=== PATIENT | male | born 1965 | race Caucasian/White ===

== ENCOUNTER 2016-04-23 20:11 | Emergency (ER) | payer OTHER ==
[~2016-04-23] VITALS: Ht 162.6 cm; Wt 68.1 kg
[~2016-04-23 20:11] MED LIST: ACET-1256 PO; GABA-112 PO; PENI-82 PO
[2016-04-23 20:33] VITALS: TEMP 37; Ht 162.6 cm; Wt 68.1 kg
[2016-04-23] MEDS ORDERED: GABAPENTIN 600 MG TAB PO STA (21:23)
[2016-04-23] MEDS ORDERED: NRN/600 PO (21:31)
[2016-04-23 21:41] VITALS: BP 154/70; PULSE 78; O2SAT 94
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
[2016-05-26] MEDS ORDERED: LSN/2025 PO (14:47)
[2016-05-26] MEDS ORDERED: GABA600T PO ×2 (21:16→23:14)
== END 2016-04-23 21:42 | disposition home or self-care (01) ==
LOC: C.EDB 20:15 → C.EDD 21:42
DX: Z76.0 Encounter for issue of repeat prescription (principal); G89.29 Other chronic pain; I10 Essential (primary) hypertension; F17.200 Nicotine dependence, unspecified, uncomplicated

== ENCOUNTER 2016-05-26 22:18 | Emergency (ER) | payer OTHER ==
[~2016-05-26] VITALS: Ht 162.6 cm; Wt 71.3 kg
[~2016-05-26 22:18] MED LIST changes: -GABA-112 PO; +GABA600T PO; +LSN/2025 PO; -PENI-82 PO
[2016-05-26 22:21] VITALS: TEMP 36.7; Ht 162.6 cm; Wt 71.3 kg
[2016-05-26] MEDS ORDERED: GABA600T PO (23:14)
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
[2016-05-26 23:37] VITALS: BP 165/91; PULSE 65; O2SAT 95
== END 2016-05-26 23:38 | disposition home or self-care (01) ==
LOC: C.EDB 22:21 → C.EDD 23:38
DX: Z76.0 Encounter for issue of repeat prescription (principal); K21.9 Gastro-esophageal reflux disease without esophagitis; I10 Essential (primary) hypertension; K27.9 Peptic ulcer, site unspecified, unspecified as acute or chronic, without hemorrhage or perforation; F17.210 Nicotine dependence, cigarettes, uncomplicated

== ENCOUNTER 2016-06-13 12:58 | Emergency (ER) | payer OTHER ==
[~2016-06-13] VITALS: Ht 162.6 cm; Wt 68.1 kg
[2016-06-13 13:11] VITALS: BP 128/79; PULSE 87; TEMP 36.6; O2SAT 94; Ht 162.6 cm; Wt 68.1 kg
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
== END 2016-06-13 13:47 | disposition home or self-care (01) ==
LOC: C.EDB 13:00 → C.EDD 13:47
DX: Z76.0 Encounter for issue of repeat prescription (principal); G89.21 Chronic pain due to trauma; K21.9 Gastro-esophageal reflux disease without esophagitis; I10 Essential (primary) hypertension; F17.210 Nicotine dependence, cigarettes, uncomplicated; Z79.899 Other long term (current) drug therapy

== ENCOUNTER 2016-06-23 08:04 | Emergency (ER) | payer OTHER ==
[~2016-06-23] VITALS: Ht 162.6 cm; Wt 71.8 kg
[2016-06-23 08:08] VITALS: BP 125/75; PULSE 87; TEMP 36.7; O2SAT 95; Ht 162.6 cm; Wt 71.8 kg
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
== END 2016-06-23 08:47 | disposition home or self-care (01) ==
LOC: C.EDB 08:06 → C.EDA 08:47
DX: Z76.0 Encounter for issue of repeat prescription (principal); M25.571 Pain in right ankle and joints of right foot; M54.5 Low back pain; G89.21 Chronic pain due to trauma; K21.9 Gastro-esophageal reflux disease without esophagitis; I10 Essential (primary) hypertension; F17.210 Nicotine dependence, cigarettes, uncomplicated; Z79.899 Other long term (current) drug therapy

== ENCOUNTER 2016-10-31 13:13 | Emergency (ER) | payer OTHER ==
[~2016-10-31] VITALS: Ht 162.6 cm; Wt 63.6 kg
[~2016-10-31 13:13] MED LIST changes: -GABA600T PO
[2016-10-31 13:15] VITALS: TEMP 36.5; Ht 162.6 cm; Wt 63.6 kg
[2016-10-31] MEDS ORDERED: SODIUM CHLORIDE 0.9% 1000ML 500 ML IV STA (13:31)
[2016-10-31] MEDS ORDERED: PROMETHAZINE HCL INJ 25 MG/ML 1 ML VIAL IV STA (13:31)
[2016-10-31] MEDS ORDERED: SODIUM CHLORIDE 0.9% 1000ML 1,000 ML IV STA (13:31)
--- NOTE | 2016-10-31 13:37 | EMERGENCY ROOM VISIT NOTE ---
History Report prepared by Ryan: Sussy Lewis Under the Supervision of: Dr. Cliff Weber M.D. First contact with patient: 13:26 Chief Complaint: ABDOMINAL PAIN Stated Complaint: ABD PAIN, NAUSEA Nursing Triage Summary: Pt presents from [facility], here with lower abdominal pain and nausea starting Friday. History of Present Illness The patient is a 51 year old male who presents to the Emergency Room with complaints of persistent upper abdominal pain that began five days ago. He currently rates his discomfort as a 10/10 in severity. The patient states that his pain is worsened with eating and drinking. He reports that he has been experiencing nausea and states that he has been vomiting his medication up every morning. The patient states that his pain radiates down to his one testicle. He reports back pain. The patient states that he had a subjective fever on Friday. He reports a history of an appendectomy but states that he still has his gallbladder. The patient reports that he had a stomach ulcer when he was younger. He states that he has not been making as much urine. The patient denies any history of pancreatitis or gallstones. 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 Source of History: patient Onset: five days ago Position: abdomen (upper) Symptom Intensity: 10/10 Timing: other (persistent) Modifying Factors (Worsening): eating, drinking Associated Symptoms: + fevers (subjective), + nausea, + vomiting, + back pain Note: Associated Symptoms: testicular pain Review of Systems See HPI for pertinent positives & negatives. A total of 10 systems reviewed and were otherwise negative. 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 (2) Chronic back pain (3) Degenerative disc disease (4) GERD (gastroesophageal reflux disease) (5) History of peptic ulcer (6) Hypertension (7) Hypertensive urgency (8) Tobacco abuse Family History No pertinent family history Social History Smoking Status: Current Every Day Smoker Alcohol Use: occasionally Marital Status: Occupation Status: employed Current/Historical Medications Scheduled Hydrochlorothiazide (Hydrochlorothiazide), 50 MG PO DAILY Lisinopril/Hctz (Zestoretic 20MG/25MG), 2 TABS PO DAILY Scheduled PRN Acetaminophen (Tylenol), 1,000 MG PO BID PRN for Pain Aluminum/Magnesium/Simeth (Maalox Max Susp), 30 ML PO BID PRN for PRN Allergies Coded Allergies: Morphine (Unverified Allergy, Mild, RASH, 06/23/16) Physical Exam Vital Signs Date Time Temp Pulse Resp B/P (MAP) Pulse Ox O2 Delivery O2 Flow Rate FiO2 10/31/16 14:07 88 10/31/16 13:50 86 13 136/86 97 Room Air 10/31/16 13:15 36.5 90 18 157/107 96 Room Air Physical Exam GENERAL: Patient is in no acute distress. Moaning. HEENT: No acute trauma, normocephalic atraumatic, mucous membranes moist, no nasal congestion, no scleral icterus. NECK: No stridor, no adenopathy, no meningismus, trachea is midline. LUNGS: Wheezing bilaterally, equal breath sounds, no rhonchi. HEART: Without murmurs gallops or rubs, regular rate and rhythm. ABDOMEN: Diffusely mildly tender, but primarily tender in the epigastrium. Soft , bowel sounds positive, no hernias, no peritonitis. EXTREMITIES: No cyanosis or edema, full range of motion of all the joints without pain or difficulty, no signs for acute trauma. NEUROLOGIC: Oriented x 3, no acute motor or sensory deficits, no focal weakness. SKIN: No rash, no jaundice, no diaphoresis. Medical Decision & Procedures ER Provider Diagnostic Interpretation: Radiology results as stated below per my review and radiologist interpretation: CHEST ONE VIEW PORTABLE CLINICAL HISTORY: Abdominal pain. Nausea. COMPARISON STUDY: No previous studies for comparison. FINDINGS: There is no pneumothorax or pleural effusion. Pulmonary vascularity is normal. No consolidation is identified. Cardiomediastinal silhouette is normal. IMPRESSION: No acute cardiopulmonary findings. Electronically signed by: Wilber Mallory M.D. 10/31/2016 2:23 PM Dictated Date/Time: 10/31/2016 2:22 PM Laboratory Results 10/31/16 13:44 Red Blood Count 5.20, Mean Corpuscular Volume 89.2, Mean Corpuscular Hemoglobin 32.5, Mean Corpuscular Hemoglobin Concent 36.4, Mean Platelet Volume 9.6, Neutrophils (%) (Auto) 75.5, Lymphocytes (%) (Auto) 16.3, Monocytes (%) (Auto) 7.4, Eosinophils (%) (Auto) 0.3, Basophils (%) (Auto) 0.3, Neutrophils # (Auto) 7.05, Lymphocytes # (Auto) 1.52, Monocytes # (Auto) 0.69, Eosinophils # (Auto) 0.03, Basophils # (Auto) 0.03 10/31/16 13:44 Test 10/31/16 13:44 White Blood Count 9.34 K/uL (4.8-10.8) Red Blood Count 5.20 M/uL (4.7-6.1) Hemoglobin 16.9 g/dL (14.0-18.0) Hematocrit 46.4 % (42-52) Mean Corpuscular Volume 89.2 fL (80-100) Mean Corpuscular Hemoglobin 32.5 pg (25-34) Mean Corpuscular Hemoglobin Concent 36.4 g/dl (32-36) Platelet Count 315 K/uL (130-400) Mean Platelet Volume 9.6 fL (7.4-10.4) Neutrophils (%) (Auto) 75.5 % Lymphocytes (%) (Auto) 16.3 % Monocytes (%) (Auto) 7.4 % Eosinophils (%) (Auto) 0.3 % Basophils (%) (Auto) 0.3 % Neutrophils # (Auto) 7.05 K/uL (1.4-6.5) Lymphocytes # (Auto) 1.52 K/uL (1.2-3.4) Monocytes # (Auto) 0.69 K/uL (0.11-0.59) Eosinophils # (Auto) 0.03 K/uL (0-0.5) Basophils # (Auto) 0.03 K/uL (0-0.2) RDW Standard Deviation 41.6 fL (36.4-46.3) RDW Coefficient of Variation 12.8 % (11.5-14.5) Immature Granulocyte % (Auto) 0.2 % Immature Granulocyte # (Auto) 0.02 K/uL (0.00-0.02) Prothrombin Time 10.3 SECONDS (9.0-12.0) Prothromb Time International Ratio 1.0 (0.9-1.1) Activated Partial Thromboplast Time 24.3 SECONDS (21.0-31.0) Partial Thromboplastin Ratio 0.9 Anion Gap 9.0 mmol/L (3-11) Est Creatinine Clear Calc Drug Dose 56.3 ml/min Estimated GFR () 73.2 Estimated GFR (Non- 63.2 BUN/Creatinine Ratio 27.5 (10-20) Calcium Level 10.2 mg/dl (8.5-10.1) Total Bilirubin 1.3 mg/dl (0.2-1) Aspartate Amino Transf (AST/SGOT) 17 U/L (15-37) Alanine Aminotransferase (ALT/SGPT) 25 U/L (12-78) Alkaline Phosphatase 69 U/L (45-117) Troponin I < 0.015 ng/ml (0-0.045) Total Protein 8.4 gm/dl (6.4-8.2) Albumin 4.6 gm/dl (3.4-5.0) Globulin 3.8 gm/dl (2.5-4.0) Albumin/Globulin Ratio 1.2 (0.9-2) Lipase 145 U/L (73-393) Laboratory results reviewed by me. Medications Administered Medications (Trade) Dose Ordered Sig/Abran Route Start Time Stop Time Status Last Admin Dose Admin Sodium Chloride 500 ml @ 999 mls/hr Q31M STAT IV 10/31/16 13:31 10/31/16 14:01 DC 10/31/16 13:52 999 MLS/HR Sodium Chloride 1,000 ml @ 200 mls/hr Q5H STAT IV 10/31/16 13:31 10/31/16 18:30 10/31/16 14:21 200 MLS/HR Hydromorphone HCl (Dilaudid Inj) 0.5 mg STK-MED ONCE .ROUTE 10/31/16 13:48 10/31/16 13:49 DC 10/31/16 13:52 0.5 MG Promethazine HCl 12.5 mg/Sodium Chloride 50.5 ml @ 202 mls/hr 1430 ONCE IV 10/31/16 14:30 10/31/16 14:44 DC 10/31/16 14:57 202 MLS/HR Hydromorphone HCl (Dilaudid Inj) 0.5 mg STK-MED ONCE .ROUTE 10/31/16 14:53 10/31/16 14:54 DC 10/31/16 14:57 0.5 MG ECG Indication: abdominal pain Rate (beats per minute): 78 Rhythm: normal sinus (with sinus arrhythmia) Findings: no acute ischemic change, no ectopy ED Course 1327: The patient was evaluated in room B2. A complete history and physical exam was performed. 1331: Ordered Sodium Chloride 1000 ml @ 200 mls/hr IV, Phenergan Inj 12.5 mg IV , Sodium Chloride 500 ml @ 999 mls/hr IV. 1345: Ordered Dilaudid Inj 0.5 mg IV. 1430: Ordered Promethazine HCl 12.5 mg/Sodium Chloride 50.5 ml @ 202 mls/hr IV. Medical Decision The patient is a 51 year old male who presents to the ED with complaints of abdominal pain. Differential diagnoses considered include Musculoskeletal pain , pancreatitis, biliary colic, acute cholecystis, gastritis, ulcer, diverticulitis, cardiac ischemia, [place], pneumonia. There is no leukocytosis or concerning anemia. No significant electrolyte abnormality, kidney failure or hepatitis. There is no pancreatitis. EKG shows a sinus rhythm, no acute ischemia. Cardiac enzyme testing times one is not consistent with acute cardiac injury. Chest x-ray does not show mediastinal widening, pneumonia or pneumothorax. Urinalysis result is pending. Gallbladder ultrasound and abdominal and pelvis CT are pending. The patient received IV saline, IV Phenergan and IV Dilaudid. He is more comfortable. At this point, the case is being assumed by Dr. Bean, she is the oncoming physician at the change of shift. The cause for the patient's pain is still unclear. Imaging is pending. Impression Primary Impression: Upper abdominal pain Scribe Attestation The scribe's documentation has been prepared under my direction and personally reviewed by me in its entirety. I confirm that the note above accurately reflects all work, treatment, procedures, and medical decision making performed by me. Departure Information Dispostion Still a Patient Referrals No Doctor, Assigned (PCP) Patient Instructions [facility]
[2016-10-31] MEDS ORDERED: ALUMSUS2 PO (13:45)
[2016-10-31] MEDS ORDERED: HYDR25TA5 PO (13:45)
[2016-10-31] MEDS ORDERED: ACET-1256 PO (13:45)
[2016-10-31] MEDS ORDERED: HYDROmorphone INJ 2 MG/ML SYR/VIAL IV PRN (13:45)
[2016-10-31] MEDS ORDERED: LISI-788 PO (13:45)
[2016-10-31] MEDS ORDERED: HYDROmorphone INJ 0.5 MG/0.5 ML SYR ONE ×5 (13:48→20:19)
[2016-10-31 13:58] LABS: BASO % 0.3 %; BASO ABS # 0.03 K/uL (0-0.2); COMPLETE YES; EOS % 0.3 %; HEMATOCRIT 46.4 % (42-52); IG% 0.2 %; LYMPH % 16.3 %; LYMPH ABS # 1.52 K/uL (1.2-3.4); MEAN CELL VOLUME 89.2 fL (80-100); MEAN CORPUSCULAR HEMOGLOBIN 32.5 pg (25-34); MEAN CORPUSCULAR HGB CONC 36.4 g/dl (32-36); MEAN PLATELET VOLUME 9.6 fL (7.4-10.4); MONO % 7.4 %; NEUT % 75.5 %; PLATELET COUNT 315 K/uL (130-400); WHITE BLOOD COUNT 9.34 K/uL (4.8-10.8)
[2016-10-31 14:09] LABS: PARTIAL THROMBOPLASTIN RATIO 0.9; PROTHROMBIN TIME (PATIENT) 10.3 SECONDS (9.0-12.0)
[2016-10-31 14:15] LABS: ALT/SGPT 25 U/L (12-78); BLOOD UREA NITROGEN 36 mg/dl (7-18); BUN/CREATININE RATIO 27.5 (10-20); CALCIUM 10.2 mg/dl (8.5-10.1); CARBON DIOXIDE 28 mmol/L (21-32); CHLORIDE 99 mmol/L (98-107); GLUCOSE 120 mg/dl (70-99); POTASSIUM 4.2 mmol/L (3.5-5.1); SODIUM 136 mmol/L (136-145)
[2016-10-31 14:20] LABS: ALB/GLOB RATIO 1.2 (0.9-2); ALKALINE PHOSPHATASE 69 U/L (45-117); AST/SGOT 17 U/L (15-37)
--- NOTE | 2016-10-31 14:24 | DIAGNOSTIC IMAGING REPORT ---
CHEST ONE VIEW PORTABLE CLINICAL HISTORY: Abdominal pain. Nausea. COMPARISON STUDY: No previous studies for comparison. FINDINGS: There is no pneumothorax or pleural effusion. Pulmonary vascularity is normal. No consolidation is identified. Cardiomediastinal silhouette is normal. IMPRESSION: No acute cardiopulmonary findings. Electronically signed by: Wilber Mallory M.D. 10/31/2016 2:23 PM Dictated Date/Time: 10/31/2016 2:22 PM
[2016-10-31] MEDS ORDERED: PROMETHAZINE HCL INJ 12.5 MG in SODIUM CHLORIDE 0.9% 50ML 50 ML IV ONE (14:30)
--- NOTE | 2016-10-31 15:14 | DIAGNOSTIC IMAGING REPORT ---
GALLBLADDER-ABD LIMITED HISTORY: 51 years-old Male ABDOMINAL PAIN/GI COMPARISON: CT abdomen and pelvis 10/04/2015 TECHNIQUE: Multiple real-time sonographic images of the abdominal right upper quadrant were obtained assessing grayscale appearance and color flow. FINDINGS: The imaged portions of the pancreas are unremarkable with the distal body and tail obscured by bowel gas. The proximal pancreatic duct appears mildly dilated, 0.5 cm without obstructing stone or mass identified. The hepatic parenchyma is within normal limits without focal mass. Gallbladder is within normal limits without shadowing cholelithiasis, color wall thickening or pericholecystic fluid. A positive sonographic Thomas's sign was not reported. Common bile duct measures in the upper limits of normal, 0.6 cm. The imaged portions of the right kidney are unremarkable without hydronephrosis. IMPRESSION: 1. Mild dilation of the proximal pancreatic duct, 0.5 cm without obstructing stone or mass identified is nonspecific. Correlate with CT abdomen and pelvis scheduled for same day. 2. No cholelithiasis or sonographic evidence of acute cholecystitis. 3. No biliary ductal dilation. The above report was generated using voice recognition software. It may contain grammatical, syntax or spelling errors. Electronically signed by: Haris Ballard M.D. 10/31/2016 3:13 PM Dictated Date/Time: 10/31/2016 3:01 PM
[2016-10-31] MEDS ORDERED: OPTIRAY 320 IV PRN (15:45)
--- NOTE | 2016-10-31 17:57 | DIAGNOSTIC IMAGING REPORT ---
ABD/PELVIS IV AND ORAL CONT CLINICAL HISTORY: 51 years-old Male presenting with ABDOMINAL PAIN/GI--?DIVERTICULITIS--GIVE PO AND IV CONTRAST. TECHNIQUE: Multidetector CT of the abdomen and pelvis was performed after the administration of oral and intravenous contrast. IV contrast: 93 mL of Optiray 320. A dose lowering technique was used consistent with the principles of ALARA (as low as reasonably achievable). COMPARISON: 10/04/2015. CT DOSE (mGy.cm): The estimated cumulative dose is 256.65 mGy.cm. 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 Lung bases: Minimal dependent opacities likely atelectasis. Normal heart size. No pericardial or pleural effusion. Liver: Normal morphology. No liver lesion. Patent hepatic vasculature. Biliary: No intrahepatic or extrahepatic biliary ductal dilatation. Normal gallbladder. Pancreas: Prominence of the pancreatic duct in the pancreatic head and neck. No gross evidence of an obstructing mass or calculus. Spleen: Normal. Adrenal glands: Normal. Kidneys and ureters: Subcentimeter hypodensities, too small to characterize but likely cysts. No nephrolithiasis. No hydronephrosis. Bladder: Normal. Pelvic organs: Prostate enlargement likely secondary to benign prostatic hyperplasia. Bowel: Small hiatal hernia. Suggestion of distal esophageal wall thickening. No infiltration of the paraesophageal fat. Subcentimeter lymph node noted along the left aspect of the esophagus in the posterior mediastinum (series 3 image 21). Bowel otherwise normal. No bowel obstruction. Peritoneal cavity: No free fluid or intraperitoneal gas. Vasculature: Atherosclerosis of the normal caliber abdominal aorta. IVC patent. Lymph nodes: Prominent paraesophageal lymph node. Otherwise no evidence of enlarged lymph nodes in abdomen or pelvis. Abdominal wall: Normal. Musculoskeletal: Intramedullary nail through the proximal right femoral metadiaphysis. 3 lucent lesions noted, one of which demonstrates a sclerotic rim in the left ilium. Remaining to lesions do not have a sclerotic rim, one in the right ilium and the second in the L5 vertebral body. Additional degenerative changes of the lumbar spine noted. IMPRESSION: 1. Distal esophageal wall thickening with a small hiatal hernia. This could represent esophagitis secondary to reflux. However, the presence of a prominent paraesophageal lymph node could raise suspicion for neoplastic changes of the esophagus. Consideration for upper endoscopy. 2. Indeterminate lucent lesions pelvic bones and L5 vertebral body. Electronically signed by: Roel Husain M.D. 10/31/2016 5:56 PM Dictated Date/Time: 10/31/2016 5:44 PM
[2016-10-31 18:15] LABS: URINE APPEARANCE CLEAR (CLEAR); URINE BILIRUBIN NEG (NEG); URINE COLOR YELLOW; URINE NITRITE NEG (NEG); URINE PH 7.5 (4.5-7.5); URINE SPECIFIC GRAVITY 1.025 (1.000-1.030); UROBILINOGEN NEG (NEG); ZZUR CULT IF INDIC CLEAN CATCH NO
[2016-10-31 18:18] LABS: MANUAL MICROSCOPIC REQUIRED? NO; REVIEW REQ? NO
[2016-10-31] MEDS ORDERED: GI COCKTAIL PO STA (18:22)
[2016-10-31] MEDS ORDERED: PANTOprazole INJ 40 MG in SYRINGE 0 ML IV ONE (18:30)
[2016-10-31] MEDS ORDERED: LIDOCAINE HCL 2% VISC SOLN 20 ML UDC ONE (18:53)
[2016-10-31] MEDS ORDERED: ALUMINUM/MAGNESIUM SUSP 30 ML UDC ONE (18:53)
--- NOTE | 2016-10-31 18:56 | EMERGENCY ROOM VISIT NOTE ---
ED Visit Note First contact with patient: 15:49 I received this patient in sign out from Dr. Weber. I updated the pt at bedside regarding his labs, US and CT results. Pt states has been having epigastric pain with eating over the course of the last week. Denies hx of GERD /PUD. Patient in no recurrent vomiting while here, no episodes of diarrhea. Vital signs stable and patient afebrile. Patient tolerated by mouth challenge, given dose of IV Protonix and GI cocktail. Discussed with patient need for additional GI evaluation and likely EGD. Patient aware of abnormalities found on CT. Advised initiation of acid reducing medication on a daily basis, avoidance of acidic foods in his diet. Discussed symptoms to watch and return for, he verbalized understanding was agreeable with plan. Copies of all results given to guards prior to transfer back to correction.
[2016-10-31 19:55] VITALS: BP 102/72; PULSE 79; O2SAT 97
== END 2016-10-31 20:40 | disposition home or self-care (01) ==
LOC: C.EDB 13:14
DX: R10.10 Upper abdominal pain, unspecified (principal); N50.819 Testicular pain, unspecified; M54.9 Dorsalgia, unspecified; G89.29 Other chronic pain; K21.9 Gastro-esophageal reflux disease without esophagitis; I10 Essential (primary) hypertension; F17.210 Nicotine dependence, cigarettes, uncomplicated; Z79.899 Other long term (current) drug therapy

== ENCOUNTER 2016-12-13 14:08 | Emergency (ER) | payer OTHER ==
[~2016-12-13 14:08] MED LIST changes: +ALUMSUS2 PO; +HYDR25TA5 PO; +LISI-788 PO; -LSN/2025 PO
--- NOTE | 2016-12-13 14:23 | EMERGENCY ROOM VISIT NOTE ---
History Report prepared by Ryan: Anish Marie Under the Supervision of: Dr. Francesco Powers D.O. First contact with patient: 14:11 Stated Complaint: CARDIAC ARREST History of Present Illness The patient is a 51 year old male who presents to the Emergency Room for constant cardiac arrest. Per the EMS the patient was last seen an hour and a half before EMS arrival and he was nauseous and vomiting. Additionally, the patient has not been feeling well since yesterday. Per the EMS, the patient has a history of drug use, though unsure what kind of drugs. Additionally, they state that the [facility], and yesterday he refilled a prescription, though the family is unsure what kind. The patient was found unresponsive and laying in his own vomit. En route, the patient was given 6 rounds of epinephrine and intubated, and he still remained in asystole. It was 53 minutes from the time EMS was on scene and the patient arrived. History is limited secondary to cardiac arrest. Source of History: EMS History Limited By: cardiac arrest Onset: an hour and a half Position: other (global) Quality: other (cardiac arrest) Timing: constant Associated Symptoms: + vomiting Review of Systems See HPI for pertinent positives & negatives. A total of 10 systems reviewed and were otherwise negative. 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 (2) Chronic back pain (3) Degenerative disc disease (4) GERD (gastroesophageal reflux disease) (5) History of peptic ulcer (6) Hypertension (7) Hypertensive urgency (8) Tobacco abuse Family History No pertinent family history Social History Smoking Status: Current Every Day Smoker Alcohol Use: occasionally Marital Status: Occupation Status: employed Current/Historical Medications Scheduled Hydrochlorothiazide (Hydrochlorothiazide), 50 MG PO DAILY Lisinopril/Hctz (Zestoretic 20MG/25MG), 2 TABS PO DAILY Scheduled PRN Acetaminophen (Tylenol), 1,000 MG PO BID PRN for Pain Aluminum/Magnesium/Simeth (Maalox Max Susp), 30 ML PO BID PRN for PRN Allergies Coded Allergies: Morphine (Unverified Allergy, Mild, RASH, 06/23/16) Physical Exam Physical Exam CONSTITUTIONAL/VITAL SIGNS: Reviewed / noted above. GENERAL: No signs of life. INTEGUMENTARY: Pale HEAD: Normocephalic. EYES: fixed and dilated ENT/OROPHARYNX: ETT in place RESPIRATORY: Lungs clear and equal. CARDIOVASCULAR: No pulses EXTREMITIES: Cool NEUROLOGICAL: No response. MUSCULOSKELETAL: No obvious trauma. Medical Decision & Procedures ED Course 1411: Previous medical records were reviewed. The patient was evaluated in room B1. A complete history and physical examination was performed. Medical Decision Differential diagnosis: Etiologies such as cardiac ischemia, aortic dissection, pulmonary embolism, electrolyte abnormality, acidosis, tension pneumothorax, hypothermia, hypovolemia, intracranial event, as well as others were entertained. The patient is a 51-year-old male who arrives in cardiac arrest by EMS. The EMS report that the patient has been ill recently with some vomiting. He has been ill for a few days. The patient got a prescription filled yesterday. Today the patient was found by family unresponsive. He was last seen awake about 1-1/2 hours prior to this. EMS has been working the patient about 53 minutes prior to their arrival in the emergency department. They've administered 6 mg of epinephrine, endotracheal intubation and have been performing continuous CPR. The patient was found in asystole. He remains in asystole. He has had no rhythm throughout his resuscitation efforts. CPR was continued in the emergency department briefly. The patient's exam did not reveal any signs of life. EKG reveals asystole. The patient was pronounced . Impression Primary Impression: Cardiac arrest Scribe Attestation The scribe's documentation has been prepared under my direction and personally reviewed by me in its entirety. I confirm that the note above accurately reflects all work, treatment, procedures, and medical decision making performed by me. Departure Information Dispostion Referrals No Doctor, Assigned (PCP)
[2016-12-13 16:10] VITALS: PULSE 0
== END 2016-12-13 16:11 | disposition expired ==
LOC: EDBD 14:08 → C.EDB 14:10
DX: I46.9 Cardiac arrest, cause unspecified (principal); K21.9 Gastro-esophageal reflux disease without esophagitis; I10 Essential (primary) hypertension; F17.200 Nicotine dependence, unspecified, uncomplicated